=== PATIENT | male | born 1945 | race Caucasian/White ===

== ENCOUNTER 2016-03-27 00:01 | Emergency (ER) | payer MEDICARE, OTHER ==
[~2016-03-27] VITALS: Ht 170.2 cm; Wt 100.0 kg
[~2016-03-27 00:01] MED LIST: CLOP75 PO; LANTUSP SQ; LIPI80TA16 PO; LISI10TA PO; NOVOLOGP2 SQ; TAB-TAB PO; ZOLP10TA3 PO
[2016-03-27 00:04] VITALS: BP 169/80; PULSE 81; RESP 16; TEMP 98.1; O2SAT 95
[2016-03-27] MEDS ORDERED: ATOR40TA16 PO (00:52)
[2016-03-27] MEDS ORDERED: LORA-361 PO (00:52)
[2016-03-27] MEDS ORDERED: VICT18IN SQ (00:52)
[2016-03-27] MEDS ORDERED: LANTUS2P SQ (00:52)
[2016-03-27] MEDS ORDERED: METO25TA6 PO (00:52)
[2016-03-27] MEDS ORDERED: CLOP75TA PO (00:52)
[2016-03-27] MEDS ORDERED: LISI20TA3 PO (00:52)
[2016-03-27] MEDS ORDERED: CENTTAB PO (00:52)
[2016-03-27] MEDS ORDERED: PANT40TA3 PO (00:52)
[2016-03-27] MEDS ORDERED: NOVOLOGP2 SQ (00:52)
[2016-03-27] MEDS ORDERED: AMBI10TA PO (00:54)
[2016-03-27] MEDS ORDERED: ONDANSETRON HCL 4 MG/2 ML VIAL IVP ONE (01:00)
[2016-03-27] MEDS ORDERED: MORPHINE SULFATE 8 MG/ML INJ IV PUSH ONE (01:00)
[2016-03-27] MEDS ORDERED: SODIUM CHLORIDE 0.9% FLUSH 5 ML FLUSH IVF PRN (01:00)
[2016-03-27 01:28] LABS: AUTOMATED NEUTROPHIL # 8.5 TH/MM3 (1.8-7.7); BASOPHIL # 0.1 TH/MM3 (0-0.2); BASOPHIL % 1.1 % (0.0-2.0); EOSINOPHIL # 0.4 TH/MM3 (0-0.4); EOSINOPHIL % 3.2 % (0.0-4.0); HEMATOCRIT 48.1 % (39.0-51.0); HEMO FLAGS DIFF FINAL; LYMPH % 11.8 % (9.0-44.0); LYMPHOCYTE # 1.4 TH/MM3 (1.0-4.8); MEAN CELL VOLUME 83.6 FL (80.0-100.0); MEAN CORPUSCULAR HEMOGLOBIN 28.7 PG (27.0-34.0); MEAN CORPUSCULAR HGB CONC 34.3 % (32.0-36.0); NEUT % 73.9 % (16.0-70.0); PLATELET COUNT 206 TH/MM3 (150-450); RED BLOOD COUNT 5.75 MIL/MM3 (4.50-5.90); RED CELL DISTRIBUTION WIDTH 14.3 % (11.6-17.2); WHITE BLOOD COUNT 11.5 TH/MM3 (4.0-11.0)
--- NOTE | 2016-03-27 01:29 | PD ---
HPI Chief Complaint: Abdominal Pain Time Seen by Provider: 00:51 Travel History International Travel<30 days: No Contact w/Intl Traveler<30days: No Traveled to known affect area: No History of Present Illness HPI This 70-year-old male arrives to the ER with abdominal pain. It started suddenly while he was coughing. Location is left upper quadrant. He felt a pop followed by constant pain. Palpation worsens the pain. He has had postnasal drip for the past couple days. He denies fever or vomiting. PFSH Past Medical History Hx Anticoagulant Therapy: Yes (ASA) Arthritis: Yes Heart Rhythm Problems: Yes (unsure of type of rhythm) Cardiac Catheterization: Yes (1985) Cardiovascular Problems: Yes (MT, STENT X1, CHF) High Cholesterol: Yes Chest Pain: Yes Congestive Heart Failure: No Diabetes: Yes Patient Takes Glucophage: No Diminished Hearing: No Hiatal Hernia: Yes Hypertension: Yes Immune Disorder: No Kidney Stones: Yes Neurologic: No Reproductive: No Respiratory: No Immunizations Current: Yes Myocardial Infarction: Yes Influenza Vaccination: Yes Past Surgical History Abdominal Surgery: No Cardiac Surgery: Yes (stent) Coronary Artery Bypass Graft: No Ear Surgery: No Endocrine Surgery: No Eye Surgery: No Genitourinary Surgery: No Gynecologic Surgery: No Oral Surgery: No Thoracic Surgery: No Tonsillectomy: Yes Social History Alcohol Use: No Tobacco Use: No Substance Use: No Allergies-Medications (Allergen,Severity, Reaction): Coded Allergies: No Known Allergies (Verified , 03/27/16) Reported Meds & Prescriptions Reported Meds & Active Scripts Active Reported Ambien (Zolpidem Tartrate) 10 Mg Tab 10 Mg PO HS PRN Lantus Inj (Insulin Glargine) 1,000 Unit/10 Ml Vial 75 Units SQ HS Victoza Inj (Liraglutide Inj) 18 Mg/3 Ml Pen 1.8 Mg SQ DAILY Novolog Inj (Insulin Aspart) 1,000 Unit/10 Ml Vial 0 SQ DIRECTED Sliding Scale as directed. Atorvastatin (Atorvastatin Calcium) 40 Mg Tab 40 Mg PO HS Metoprolol Succinate ER 24 HR (Metoprolol Succinate) 25 Mg Tab 25 Mg PO DAILY Pantoprazole (Pantoprazole Sodium) 40 Mg Tab 40 Mg PO DAILY Lisinopril-Hctz 20-25 Mg Tab 1 Tab PO DAILY Clopidogrel (Clopidogrel Bisulfate) 75 Mg Tab 75 Mg PO DAILY Claritin (Loratadine) 10 Mg Tab 10 Mg PO DAILY Centrum Silver (Multiple Vitamins W/ Minerals) 1 Tab 1 Tab PO DAILY Review of Systems Except as stated in HPI: all other systems reviewed are Neg Physical Exam Narrative GENERAL: 70-year-old male pleasant SKIN: Warm and dry. HEAD: Atraumatic. Normocephalic. EYES: Pupils equal and round. No scleral icterus. No injection or drainage. ENT: No nasal bleeding or discharge. Mucous membranes pink and moist. NECK: Trachea midline. No JVD. CARDIOVASCULAR: Regular rate and rhythm. No murmur appreciated. RESPIRATORY: No accessory muscle use. Clear to auscultation. Breath sounds equal bilaterally. GASTROINTESTINAL: Abdomen soft, non-tender, nondistended. Hepatic and splenic margins not palpable. Minimal tenderness along the left costophrenic margin. MUSCULOSKELETAL: No obvious deformities. No clubbing. No cyanosis. No edema. NEUROLOGICAL: Awake and alert. No obvious cranial nerve deficits. Motor grossly within normal limits. Normal speech. PSYCHIATRIC: Appropriate mood and affect; insight and judgment normal. Data Data Last Documented VS Vital Signs Date Time Temp Pulse Resp B/P Pulse Ox O2 Delivery O2 Flow Rate FiO2 03/27/16 00:04 98.1 81 16 169/80 95 Room Air Orders Complete Blood Count With Diff (03/27/16 00:56) Comprehensive Metabolic Panel (03/27/16 00:56) Lipase (03/27/16 00:56) Ct Abd/Pel W Iv Contrast(Rout) (03/27/16 00:56) Iv Access Insert/Monitor (03/27/16 00:56) Ecg Monitoring (03/27/16 00:56) Oximetry (03/27/16 00:56) Ondansetron Inj (Zofran Inj) (03/27/16 01:00) Sodium Chloride 0.9% Flush (Ns Flush) (03/27/16 01:00) Morphine Inj (Morphine Inj) (03/27/16 01:00) Iohexol 350 Inj (Omnipaque 350 Inj) (03/27/16 02:04) Labs Laboratory Tests Test 03/27/16 01:10 White Blood Count 11.5 TH/MM3 Red Blood Count 5.75 MIL/MM3 Hemoglobin 16.5 GM/DL Hematocrit 48.1 % Mean Corpuscular Volume 83.6 FL Mean Corpuscular Hemoglobin 28.7 PG Mean Corpuscular Hemoglobin 34.3 % Concent Red Cell Distribution Width 14.3 % Platelet Count 206 TH/MM3 Mean Platelet Volume 9.0 FL Neutrophils (%) (Auto) 73.9 % Lymphocytes (%) (Auto) 11.8 % Monocytes (%) (Auto) 10.0 % Eosinophils (%) (Auto) 3.2 % Basophils (%) (Auto) 1.1 % Neutrophils # (Auto) 8.5 TH/MM3 Lymphocytes # (Auto) 1.4 TH/MM3 Monocytes # (Auto) 1.1 TH/MM3 Eosinophils # (Auto) 0.4 TH/MM3 Basophils # (Auto) 0.1 TH/MM3 CBC Comment DIFF FINAL Differential Comment Sodium Level 139 MEQ/L Potassium Level 4.0 MEQ/L Chloride Level 104 MEQ/L Carbon Dioxide Level 22.8 MEQ/L Anion Gap 12 MEQ/L Blood Urea Nitrogen 18 MG/DL Creatinine 1.25 MG/DL Estimat Glomerular Filtration 57 ML/MIN Rate Random Glucose 224 MG/DL Calcium Level 8.9 MG/DL Total Bilirubin 1.2 MG/DL Aspartate Amino Transf 40 U/L (AST/SGOT) Alanine Aminotransferase 49 U/L (ALT/SGPT) Alkaline Phosphatase 114 U/L Total Protein 7.4 GM/DL Albumin 3.6 GM/DL Lipase 62 U/L [facility] Medical Decision Making Medical Screen Exam Complete: Yes Emergency Medical Condition: Yes Medical Record Reviewed: Yes Differential Diagnosis Muscle strain, diaphragmatic hernia, rib contusion, splenic injury, gastritis, pancreatitis Narrative Course CBC & BMP Diagram 03/27/16 01:10 Total bilirubin 1.2 AST 40 LFTs normal Lipase 62 CT pelvis reveals hepatic steatosis without acute disease otherwise In the setting of normal blood work a musculoskeletal etiology of pain is considered most likely. We'll provide analgesia. Patient's ready for discharge. Return precautions discussed. Diagnosis Primary Impression: Abdominal pain Qualified Code: R10.11 - Right upper quadrant abdominal pain Referrals: Primary Care Physician 2 days Additional Instructions: You have a choice when it comes to health care, and we are glad that you chose [facility]. Hopefully, we have met your expectations on today's visit. You are welcome to return to [facility] at any time, as we are committed to meeting the health care needs of our community. Med/Other Pt SpecificInfo: Prescription(s) given Scripts Hydrocodone-Acetaminophen (Lortab)5-325 Mg Tab1-2 Tab PO Q6H PRN (PAIN SCALE 6 TO 10) #20 TAB Ref 0 Prov:Magdy Park MD 03/27/16 Disposition: 01 DISCHARGE HOME Condition: Stable Magdy Park MD Mar 27, 2016 01:29
[2016-03-27 01:48] LABS: ALKALINE PHOSPHATASE 114 U/L (45-117); ALT (GPT) 49 U/L (12-78); ANION GAP 12 MEQ/L (5-15); AST (GOT) 40 U/L (15-37); BICARBONATE 22.8 MEQ/L (21.0-32.0); BLOOD UREA NITROGEN 18 MG/DL (7-18); CHLORIDE 104 MEQ/L (98-107); GLOMERULAR FILTRATION RATE 57 ML/MIN (>89); SODIUM (NA) 139 MEQ/L (136-145); TOTAL BILIRUBIN ADULT 1.2 MG/DL (0.2-1.0)
[2016-03-27] MEDS ORDERED: IOHEXOL 350 MG/ML 10 ML VIAL (for RAD DIAG) IV ONE (02:04)
--- NOTE | 2016-03-27 02:20 | RADRPT ---
EXAM DATE/TIME: 03/27/2016 02:00 [facility] COMPARISON: No previous studies available for comparison. INDICATIONS : Sudden onset of left upper quadrant pain after coughing. IV CONTRAST: 95 cc Omnipaque 350 (iohexol) IV ORAL CONTRAST: No oral contrast ingested. RADIATION DOSE: 16.70 CTDIvol (mGy) MEDICAL HISTORY : Cardiovascular disease. Hypertension. Hernia, hiatal.diabetes. SURGICAL HISTORY : None. ENCOUNTER: Initial ACUITY: 1 day PAIN SCALE: 10/10 LOCATION: Left upper quadrant abdomen TECHNIQUE: Volumetric scanning of the abdomen and pelvis was performed. Using automated exposure control and ad justment of the mA and/or kV according to patient size, radiation dose was kept as low as reasonably achievable to obtain optimal diagnostic quality images. FINDINGS: LOWER LUNGS: The visualized lower lungs are clear. LIVER: Diffusely low in density without lesion. There is no dilation of the biliary tree. No calcified gal lstones. SPLEEN: Normal size without lesion. PANCREAS: Within normal limits. KIDNEYS: Normal in size and shape. There is no mass, stone or hydronephrosis. A 3 cm simple cyst involving th e right kidney. ADRENAL GLANDS: Within normal limits. VASCULAR: There is no aortic aneurysm. BOWEL/MESENTERY: The stomach, small bowel, and colon demonstrate no acute abnormality. There is no free intraperitone al air or fluid. ABDOMINAL WALL: Within normal limits. RETROPERITONEUM: There is no lymphadenopathy. BLADDER: No wall thickening or mass. REPRODUCTIVE: Within normal limits. INGUINAL: There is no lymphadenopathy or hernia. MUSCULOSKELETAL: Within normal limits for patient age. CONCLUSION: 1. No acute abnormality. 2. Hepatic steatosis. Franklyn Hanks Jr., MD on March 27, 2016 at 2:16 Board Certified Radiologist. This report was verified electronically.
[2016-03-27] MEDS ORDERED: HYDR-3533 PO (02:29)
== END 2016-03-27 02:58 | disposition home or self-care (01) ==
LOC: NEPC 00:01
DX: R10.12 Left upper quadrant pain (principal); Z79.82 Long term (current) use of aspirin; I25.2 Old myocardial infarction; E78.00 Pure hypercholesterolemia, unspecified; I50.9 Heart failure, unspecified; E11.9 Type 2 diabetes mellitus without complications; I10 Essential (primary) hypertension; Z95.5 Presence of coronary angioplasty implant and graft; Z87.442 Personal history of urinary calculi
CPT/HCPCS: 74177; 80053; 83690; 85025; 96374; 96375; 99284; J2270; J2405; Q9967